=== PATIENT | female | born 2000 | race Asian ===

== ENCOUNTER 2020-02-16 21:45 | Emergency (ER) | payer OTHER ==
[~2020-02-16] VITALS: Ht 162.6 cm; Wt 52.3 kg
[2020-02-16] MEDS: LIDOCAINE 1% 10 ML VIAL INJ ONE ×2 (22:33→23:37)
[2020-02-16 23:34] VITALS: BP 109/62
== END 2020-02-16 23:34 | disposition home or self-care (01) ==
LOC: EMS 21:45
DX: L92.3 Foreign body granuloma of the skin and subcutaneous tissue (principal); H92.01 Otalgia, right ear
CPT/HCPCS: 70360; J3490